=== PATIENT | female | born 1955 | race Caucasian/White ===

== ENCOUNTER → 2018-01-28 07:19 | Outpatient (CLI) | payer OTHER, SELFPAY ==
[2018-01-28 09:03] LABS: Add Manual Diff / Slide Review NO; Basophils Percent Auto 0.3 % (0-2); Eosinophils Percent Auto 1.3 % (2-4); Hematocrit 42.8 % (36-46); Hemoglobin 14.7 g/dL (12.0-16.0); Lymphocytes Percent Auto 29.1 % (25-40); Mean Corpuscular HGB Conc 34.4 % (30-36); Mean Corpuscular Hemoglobin 31.8 PG (26-34); Mean Corpuscular Volume 92.4 fL (80-100); Monocytes Percent Auto 8.6 % (3-14); Neutrophils Absolute Auto 3300 /uL (3000-5900); Neutrophils Percent Auto 60.7 % (50-75); Platelet Count 297 X10^3/uL (150-400); Red Blood Cell Count 4.63 X10^6/uL (4.0-5.2); Red Cell Distribution Width 13.4 % (11.6-14.8); White Blood Cell Count 5.4 X10^3/uL (4.5-11.0)
[2018-01-28 09:12] LABS: Alanine Aminotransferase 22 IU/L (9-52); Albumin 4.4 g/dL (3.5-5.0); Albumin Globulin Ratio 1.5 (1.0-2.8); Alkaline Phosphatase 91 U/L (38-126); Aspartate Aminotransferase 21 IU/L (14-36); BUN Creatinine Ratio 24.3 (6-22); Bilirubin Total 0.7 mg/dL (0.2-1.3); Calcium 9.2 mg/dL (8.4-10.2); Cholesterol 180 mg/dL (140-199); Estimated Glomerular Filt Rate > 60.0 mL/min (>60); Glucose 91 mg/dL (80-110); HDL Cholesterol 77 mg/dL (40-60); HEMOLYSIS 16 (0-50); LDL Cholesterol Calculated 90 mg/dL (<100); Potassium 4.3 mmol/L (3.4-5.1); Sodium 140 mmol/L (137-145); Total Protein 7.4 g/dL (6.3-8.2); Triglycerides 66 mg/dL (35-150)
[2018-01-28 09:41] LABS: Thyroid Stimulating Hormone 1.24 uIU/mL (0.47-4.68)
[2018-01-28 09:43] LABS: Vitamin D 25 Hydroxy (D3) 34.3 ng/mL (30.0-100.0)
== END ==
PROVIDERS: PCP Family Medicine; Visit Provider Family Medicine
DX: E89.0 Postprocedural hypothyroidism (principal); Z13.220 Encounter for screening for lipoid disorders; E55.9 Vitamin D deficiency, unspecified; R03.0 Elevated blood-pressure reading, without diagnosis of hypertension
CPT/HCPCS: 36415; 80053; 80061; 82306; 84443; 85025

== ENCOUNTER → 2019-07-03 10:55 | Outpatient (CLI) | payer OTHER, SELFPAY ==
[2019-07-03 12:14] LABS: Hematocrit 44.8 % (36-46); Hemoglobin 15.3 g/dL (12.0-16.0); Mean Corpuscular HGB Conc 34.2 % (30-36); Mean Corpuscular Hemoglobin 31.8 PG (26-34); Mean Corpuscular Volume 93.1 fL (80-100); Platelet Count 300 X10^3/uL (150-400); Red Blood Cell Count 4.82 X10^6/uL (4.0-5.2); Red Cell Distribution Width 13.4 % (11.6-14.8)
[2019-07-03 12:46] LABS: Alanine Aminotransferase 19 IU/L (9-52); Albumin 4.3 g/dL (3.5-5.0); Albumin Globulin Ratio 1.5 (1.0-2.8); Alkaline Phosphatase 109 U/L (38-126); Aspartate Aminotransferase 27 IU/L (14-36); BUN Creatinine Ratio 21.4 (6-22); Bilirubin Total 0.7 mg/dL (0.2-1.3); Blood Urea Nitrogen 15 mg/dL (7-17); Calcium 9.4 mg/dL (8.4-10.2); Carbon Dioxide 29 mmol/L (22-32); Chloride 102 mmol/L (98-107); Cholesterol 188 mg/dL (140-199); Estimated Glomerular Filt Rate > 60.0 mL/min (>60); Globulin 2.9 g/dL (1.7-4.1); Glucose 93 mg/dL (80-110); HDL Cholesterol 68 mg/dL (40-60); HEMOLYSIS < 15 (0-50); LDL Cholesterol Calculated 108 mg/dL (<100); Sodium 139 mmol/L (137-145); Total Protein 7.2 g/dL (6.3-8.2); Triglycerides 60 mg/dL (35-150)
[2019-07-03 13:10] LABS: TSH w/ Reflex to FT4 0.97 uIU/mL (0.47-4.68)
== END ==
PROVIDERS: PCP Nurse Practitioner; Visit Provider Nurse Practitioner
DX: Z13.9 Encounter for screening, unspecified (principal)
CPT/HCPCS: 36415; 80053; 80061; 84443; 85027

== ENCOUNTER → 2019-12-13 12:50 | Outpatient (CLI) | payer OTHER, SELFPAY ==
--- NOTE | 2019-12-13 12:51 | DI.US.S_ITS ---
PROCEDURE: US PERIPH VENOUS UP EXTREM RT INDICATIONS: LOWER EXTREMITY DVT RIGHT TECHNIQUE: Real-time imaging, as well as color and pulse Doppler interrogation, was performed of the right lower extremity deep veins. COMPARISON: [facility], , US VENOUS LOWER EXTREMITY DOPPLER RIGHT, 11/15/2019, 16:20. FINDINGS: The internal jugular vein, visualized portions of the subclavian vein, axillary, and brachial veins are free of intraluminal thrombus. Where physically possible, the veins are normally compressible. Color and pulse Doppler demonstrate normal intraluminal flow, with expected phasicity and pulsatility. Additional scanning of the cephalic and basilic veins of the superficial system demonstrate normal compressibility, without thrombus. IMPRESSION: No evidence of deep vein thrombosis identified in the right lower extremity. Small thrombus the popliteal vein identified 11/15/2019 is not identified in the current study. Dictated by: Guerline Edmond MD, PhD on 12/13/2019 at 13:39 Approved by: Guerline Edmond MD, PhD on 12/13/2019 at 13:44
== END ==
PROVIDERS: PCP Nurse Practitioner; Referring Provider Nurse Practitioner; Visit Provider Nurse Practitioner
DX: I82.401 Acute embolism and thrombosis of unspecified deep veins of right lower extremity (principal)
CPT/HCPCS: 93971

== ENCOUNTER → 2020-07-25 07:11 | Outpatient (CLI) | payer OTHER, SELFPAY ==
[2020-07-25 08:53] LABS: Alanine Aminotransferase 16 IU/L (<35); Albumin 4.3 g/dL (3.5-5.0); Albumin Globulin Ratio 1.5 (1.0-2.8); Alkaline Phosphatase 95 U/L (38-126); Aspartate Aminotransferase 34 IU/L (14-36); BUN Creatinine Ratio 20.9 (6-22); Bilirubin Total 0.7 mg/dL (0.2-1.3); Blood Urea Nitrogen 14 mg/dL (7-17); Calcium 9.2 mg/dL (8.4-10.2); Carbon Dioxide 31 mmol/L (22-32); Chloride 104 mmol/L (98-107); Cholesterol 176 mg/dL (140-199); Estimated Glomerular Filt Rate > 60.0 mL/min (>60); Globulin 2.9 g/dL (1.7-4.1); Glucose 90 mg/dL (80-110); HDL Cholesterol 74 mg/dL (40-60); HEMOLYSIS < 15 (0-50); LDL Cholesterol Calculated 87 mg/dL (<100); Sodium 139 mmol/L (137-145); Total Protein 7.2 g/dL (6.3-8.2); Triglycerides 75 mg/dL (35-150)
[2020-07-25 09:12] LABS: Free T3, Triiodothyronine Free 3.56 pg/mL (2.77-5.27); Free T4, Direct Thyroxine 1.18 ng/dL (0.78-2.19)
[2020-07-25 09:26] LABS: Thyroid Stimulating Hormone 1.46 uIU/mL (0.47-4.68)
[2020-07-25 09:27] LABS: Ferritin 34 ng/mL (11-264)
[2020-07-25 09:40] LABS: Vitamin B12 > 1000 pg/mL (239-931)
[2020-07-26 06:57] LABS: Thyroid Peroxidase Antibodies <9 IU/mL (0-34)
[2020-08-07 07:00] LABS: Triiodothyronine T3 Reverse 19.9 ng/dL (9.2-24.1)
== END ==
PROVIDERS: PCP Nurse Practitioner; Referring Provider Nurse Practitioner; Visit Provider Nurse Practitioner
DX: E53.8 Deficiency of other specified B group vitamins (principal); E55.9 Vitamin D deficiency, unspecified; Z13.6 Encounter for screening for cardiovascular disorders; E89.0 Postprocedural hypothyroidism
CPT/HCPCS: 36415; 80053; 80061; 82306; 82607; 82728; 84439; 84443; 84481; 84482; 86376

== ENCOUNTER → 2021-12-15 11:08 | Outpatient (CLI) | payer OTHER, SELFPAY ==
[2021-12-15 14:24] LABS: COVID19 -Nasal RAPID Negative (Negative)
== END ==
PROVIDERS: PCP Nurse Practitioner; Visit Provider Surgery
DX: Z01.812 Encounter for preprocedural laboratory examination (principal); Z20.822 Contact with and (suspected) exposure to COVID-19
CPT/HCPCS: 87635; C9803

== ENCOUNTER 2021-12-16 08:50 | Day surgery (SDC) | payer OTHER, SELFPAY ==
--- NOTE | 2021-12-15 15:47 | SUR.PREOP ---
[id number] to call preop. no answer. message with information on arrival/expectations left on answering machine.
[2021-12-16] VITALS (7 sets, daily range): BP systolic 95–140; BP diastolic 49–83; PULSE 87–96; RESP 11–22; TEMP 36.1–36.4; O2SAT 95–98; BMI 32.5
[2021-12-16] MEDS: LACTATED RINGERS 1,000 ML 42 ML IV (09:29)
--- NOTE | 2021-12-16 09:40 | PM.HP.1 ---
History of Present Illness History of Present Illness Date Patient Seen: 12/16/21 Time Patient Seen: 09:47 Chief complaint: [facility] Narrative: h/o colon polyps. no symptoms, no family history and last scope was 8 years. Patient History Medical History Breast cancer (~2006) Cataracts, both eyes Chickenpox (~1957) Collar bone fracture (~1958) D[facility] (deep venous thrombosis) [facility] current use of anticoagulant therapy Measles (~1961) Mumps (~1966) Numbness and tingling of right lower extremity Osteoarthritis (~2005) Paresthesia and pain of right extremity Thyroid nodule (~2001) Unsteady gait when walking Surgical History History of cataract removal with insertion of prosthetic lens History of knee replacement History of thyroidectomy Status post breast lumpectomy Status post delivery (01/15/95) Status post cholecystectomy Family & Social History Family History Brother Age: 61 Heart disease Hypertension Osteoarthritis DDD (degenerative disc disease) Grandfather Heart disease Grandmother Heart disease Mother Heart disease Hypertension Osteoporosis Pancreatitis DDD (degenerative disc disease) Grandfather Heart disease Grandmother Cancer Sister Age: 63 Hypertension Sister Mental health problem Father Heart attack Social History: household members spouse Tobacco & Substance use: Smoking Status Former smoker alcohol intake frequency 0-2 drinks per day Substance Use Type marijuana Meds Home Medications and Allergies Home Medications Medication Instructions Recorded Confirmed Type vitamin B complex 1 cap PO DAILY 12/13/19 12/13/19 History cholecalciferol (vitamin D3) 125 250 mcg PO DAILY cap 06/19/20 12/16/21 History mcg (5,000 unit) capsule magnesium citrate 100 mg tablet 100 mg PO BID tab 06/19/20 06/19/20 History mecobalamin (vitamin B12) 1,000 1,000 mcg PO DAILY 06/19/20 06/19/20 History mcg chewable tablet vitamin K 250 mg PO .QD 06/19/20 History Allergies Allergy/AdvReac Type Severity Reaction Status Date / Time No Known Drug Allergies Allergy Verified 12/16/21 09:03 Review of Systems Review of Systems ROS: Yes All systems reviewed with the patient and are negative except as otherwise documented Exam Vital Signs (past 8 hours): - 12/16/21 09:15 Temperature 97.3 F L Pulse Rate 90 Respiratory Rate 16 Blood Pressure 140/83 Pulse Oximetry 96 Oxygen Delivery Method Room Air Const General: cooperative and comfortable HENMT Head: normal to inspection, normocephalic and atraumatic Eyes General: appearance normal, both eyes and all related structures Sclera: sclerae normal Neck Neck: normal visual inspection and trachea midline Chest Chest: normal inspection of the chest Resp Effort & Inspection: normal respiratory effort and able to speak in complete sentences Cardio Rate: regular rate Rhythm: regular rhythm GI Inspection: normal to inspection Palpation: soft Skin General: elasticity normal and atrophy Neuro General: patient alert, patient awake and patient oriented x3 Cognition: normal cognition Extrem General: normal to inspection and full ROM Psych Appearance: grossly normal Attitude: cooperative Judgment: judgment good Assessment & Plan Assessment & Plan narrative: self history of colon polyps Plan: colonoscopy with sedation COVID-19 COVID-19 status: Negative Time Spent With Patient Time with patient: less than 30 minutes Critical Care time: I spent a total of [] minutes of critical care time on this patient's care today; this time is exclusive of procedural time.
[2021-12-16] MEDS: fentaNYL 250 MCG/5 ML INJ IV (09:52)
[2021-12-16] MEDS: MIDAZOLAM 5 MG/5 ML VIAL IV (09:52)
--- NOTE | 2021-12-16 10:14 | PM.OP.COLON ---
Operative Date/Time/Diagnoses Date of procedure: 12/16/21 Time of procedure: 10:14 Pre-op diagnosis: h/o polyps Post-op diagnosis: same Procedure & Clinicians Study performed: colonoscopy w moderate sedation Same procedure as scheduled: Yes Indications: History of colon polyps Surgeon: Marcia Yanez Procedure Notes SCOAP/Timeout: Done Procedure in detail: Prep diagnosis: Self history of colon polyps Postop diagnosis: Same Operative procedure: Colonoscopy with moderate sedation Surgeon: Shira Yanez MD Findings: No polyps. Mild diverticulosis in the sigmoid colon. Procedure: Patient placed in lateral position. Rectal exam performed showing normal tone no masses. Colonoscope inserted into the rectum and advanced to ileocecal valve with minimal difficulty. Insufflation extraction of the scope and the above findings Impression: No polyps identified. Mild diverticulosis of the sigmoid colon. Plan: Repeat colonoscopy in 5 years unless otherwise indicated by change in family history or clinical condition Scope withdrawal time: 5 Sedation minutes: 21 Findings: divertiulosis Specimen(s): none sent Complications: none Impression: No polyps identified, mild diverticulosis of the descending colon Post-procedure Recommendations: Colonoscopy in 5 years Plan for aftercare: Repeat colonoscopy 5 years Follow up: as needed Disposition: PACU
== END 2021-12-16 10:51 | disposition home or self-care (01) ==
PROVIDERS: PCP Physician Assistant Medical; Referring Provider Surgery; Visit Provider Surgery
PROC: 0DJD8ZZ Inspection of Lower Intestinal Tract, Via Natural or Artificial Opening Endoscopic (ICD-10-PCS; CPT 45378; principal; 2021-12-16 10:00)
DX: Z12.11 Encounter for screening for malignant neoplasm of colon (principal); Z86.010 Personal history of colon polyps; K57.30 Diverticulosis of large intestine without perforation or abscess without bleeding
CPT/HCPCS: G0105; 99152; J2250; J3010